=== PATIENT | male | born 1970 | race Caucasian/White ===

== ENCOUNTER 2024-04-04 07:26 | Emergency (ER) | payer MEDICARE ==
[~2024-04-04] VITALS: Ht 185.4 cm; Wt 95.3 kg
[2024-04-04] MEDS ORDERED: AMOX-CLAV 875-1 EACH PO (08:40)
[2024-04-04] MEDS ORDERED: MELOXICAM15 MG PO (08:40)
== END 2024-04-04 08:45 | disposition home or self-care (01) ==
LOC: ED 07:26
DX: K04.7 Periapical abscess without sinus (principal); F17.210 Nicotine dependence, cigarettes, uncomplicated

== ENCOUNTER 2024-04-05 22:32 | Emergency (ER) | payer MEDICARE ==
[~2024-04-05] VITALS: Ht 177.8 cm; Wt 86.2 kg
[~2024-04-05 22:32] MED LIST: AMOX-CLAV 875-1 EACH PO; MELOXICAM15 MG PO
[2024-04-05] MEDS ORDERED: Ketorolac Tromethamine 60 MG/2 ML VIAL IM ONE (23:30)
== END 2024-04-06 00:04 | disposition home or self-care (01) ==
LOC: ED 22:32
DX: K04.7 Periapical abscess without sinus (principal); R22.0 Localized swelling, mass and lump, head